=== PATIENT | male | born 1985 | race American Indian/Alaskan Native ===

== ENCOUNTER 2019-04-15 11:22 | Emergency (ER) | payer OTHER ==
[2019-04-15 12:03] VITALS: BP 138/92
--- NOTE | 2019-04-15 12:03 | Event Note ---
ED Screening Note Date of service: 04/15/19 Time: 12:00 ED Screening Note: 33 yo male presents with swelling and pain to finger tip affecting nail bed This initial assessment/diagnostic orders/clinical plan/treatment(s) is/are subject to change based on patients health status, clinical progression and re- assessment by fellow clinical providers in the ED. Further treatment and workup at subsequent clinical providers discretion. Patient/guardian urged not to elope from the ED as their condition may be serious if not clinically assessed and managed. Initial orders include: acc eval I&D
[2019-04-15] MEDS ORDERED: IBUPROFEN 600 MG TAB PO ONE (12:39)
--- NOTE | 2019-04-15 12:43 | Emergency Department Report ---
Abscess Boil HPI - HPI Chief Complaint: Extremity Injury, Upper Stated Complaint: FINGER Time Seen by Provider: 04/15/19 12:00 Duration: 5 Days Location: Upper Extremity Severity: Mild History: Yes Pain, No Fever, No Purulent Drainage, No Numbness, No Foreign Body, No Previous History, No Insect Bite HPI: 33 YO COMES TO ER WITH PARONYCHIA OF RIGHT FINGER. HE BITES HIS NAILS. HAD HAD FOR WEEKS. PAIN 8-10 Home Medications: Previous Rx's Medication Instructions Recorded Last Taken Type Amoxicillin [Trimox CAP] 500 mg PO BID #20 capsule 04/15/19 Unknown Rx Ibuprofen [Motrin] 800 mg PO Q8HR PRN #30 tablet 04/15/19 Unknown Rx Allergies/Adverse Reactions: Allergies Allergy/AdvReac Type Severity Reaction Status Date / Time No Known Allergies Allergy Unverified 04/15/19 11:25 ED Review of Systems ROS: Stated complaint: FINGER Other details as noted in HPI Comment: All other systems reviewed and negative ED Past Medical Hx - Past Medical History Previous Medical History?: Yes Hx Diabetes: Yes - Surgical History Past Surgical History?: No - Family History Family history: no significant - Social History Smoking Status: Current Every Day Smoker Substance Use Type: Marijuana - Medications Home Medications: Home Medications Medication Instructions Recorded Confirmed Last Taken Type Amoxicillin [Trimox CAP] 500 mg PO BID #20 capsule 04/15/19 Unknown Rx Ibuprofen [Motrin] 800 mg PO Q8HR PRN #30 tablet 04/15/19 Unknown Rx ED Abscess Boil Physical Exam - Exam General: Vital signs noted. No distress. Alert and acting appropriately. Size: 2 cm Exam: Yes Tenderness, Yes Fluctuance, Yes Heart Murmur, Yes Normal Neurologic Exam, Yes Normal Circulation, No Surrounding Cellulites/Erythema, No Lymphangitis, No Crepitation I & D Note - I & D Note I & D Note: I/D WITH NO 10 BLADE FOR MOD AMOUNT DRAINAGE. TOLERATED WELL ED Course Vital Signs 04/15/19 12:01 Temperature 98.1 F Pulse Rate 80 Respiratory 18 Rate Blood Pressure 138/92 O2 Sat by Pulse 95 Oximetry Critical care attestation.: If time is entered above; I have spent that time in minutes in the direct care of this critically ill patient, excluding procedure time. ED Medical Decision Making - Medical Decision Making I/D - TOLERATED WELL DC HOME WITH DC PLAN OF CARE AND PCP FOLLOW UP Vital Signs 04/15/19 12:01 Temperature 98.1 F Pulse Rate 80 Respiratory 18 Rate Blood Pressure 138/92 O2 Sat by Pulse 95 Oximetry - Differential Diagnosis SIMPLE ABSCESS ED Disposition Clinical Impression: Paronychia Disposition: TO HOME OR SELFCARE Is pt being admited?: No Does the pt Need Aspirin: No Condition: Stable Instructions: Paronychia (ED) Additional Instructions: WASH WOUND WITH SOAP AND WATER KEEP CLEAN AND DRY MED ORDERED DO NOT BITE YOUR NAILS Referrals: SONIDO CASTELLANO MD [Staff Physician] - 3-5 Days Time of Disposition: 13:19
== END 2019-04-15 13:30 | disposition home or self-care (01) ==
LOC: ED 11:22
DX: L03.011 Cellulitis of right finger (principal); F17.200 Nicotine dependence, unspecified, uncomplicated; E11.9 Type 2 diabetes mellitus without complications; F12.10 Cannabis abuse, uncomplicated

== ENCOUNTER 2021-03-26 13:55 | Emergency (ER) | payer SELFPAY ==
[2021-03-26 14:36] VITALS: BP 141/91
[2021-03-26] MEDS ORDERED: LIDOCAINE (1%) 10 MG/1 ML VIAL 20 ML MDV INFILTRATI ONE (15:03)
--- NOTE | 2021-03-26 15:06 | Emergency Department Report ---
- General Chief complaint: Skin/Abscess/Foreign Body Stated complaint: CYST/NECK Time Seen by Provider: 03/26/21 15:01 Source: patient Mode of arrival: Ambulatory Limitations: No Limitations - History of Present Illness Initial comments: Patient is a 35-year-old male who presents emergency room complaints of an abscess to the right side of the neck that began a week ago. Patient states he had an abscess in this region a few years ago and had to have an I&D at that time. He denies any drainage, fever, chills, nausea, vomiting. No other past medical history. No allergies to medications. - Related Data Previous Rx's Medication Instructions Recorded Last Taken Type Amoxicillin [Trimox CAP] 500 mg PO BID #20 capsule 04/15/19 Unknown Rx Ibuprofen [Motrin] 800 mg PO Q8HR PRN #30 tablet 04/15/19 Unknown Rx Sulfamethoxazole/Trimethoprim 1 each PO BID 7 Days #14 tablet 03/26/21 Unknown Rx [Bactrim DS TAB] Allergies Allergy/AdvReac Type Severity Reaction Status Date / Time No Known Allergies Allergy Unverified 04/15/19 11:25 Abscess Boil HPI - HPI Chief Complaint: Skin/Abscess/Foreign Body Stated Complaint: CYST/NECK Time Seen by Provider: 03/26/21 15:01 Home Medications: Previous Rx's Medication Instructions Recorded Last Taken Type Amoxicillin [Trimox CAP] 500 mg PO BID #20 capsule 04/15/19 Unknown Rx Ibuprofen [Motrin] 800 mg PO Q8HR PRN #30 tablet 04/15/19 Unknown Rx Sulfamethoxazole/Trimethoprim 1 each PO BID 7 Days #14 tablet 03/26/21 Unknown Rx [Bactrim DS TAB] Allergies/Adverse Reactions: Allergies Allergy/AdvReac Type Severity Reaction Status Date / Time No Known Allergies Allergy Unverified 04/15/19 11:25 ED Review of Systems ROS: Stated complaint: CYST/NECK Other details as noted in HPI Comment: All other systems reviewed and negative ED Past Medical Hx - Past Medical History Previous Medical History?: Yes Hx Diabetes: Yes - Surgical History Past Surgical History?: No - Social History Smoking Status: Current Every Day Smoker Substance Use Type: Alcohol, Marijuana - Medications Home Medications: Home Medications Medication Instructions Recorded Confirmed Last Taken Type Amoxicillin [Trimox CAP] 500 mg PO BID #20 capsule 04/15/19 Unknown Rx Ibuprofen [Motrin] 800 mg PO Q8HR PRN #30 tablet 04/15/19 Unknown Rx Sulfamethoxazole/Trimethoprim 1 each PO BID 7 Days #14 tablet 03/26/21 Unknown Rx [Bactrim DS TAB] ED Physical Exam - General Limitations: No Limitations General appearance: alert, in no apparent distress - Head Head exam: Present: atraumatic, normocephalic - Eye Eye exam: Present: normal appearance - ENT ENT exam: Present: mucous membranes moist - Neck Neck exam: Present: other (there is a 3 cm area of induration present to the right posterior neck, there is central fluctuance, there is a 1 cm pustule in the center of the induration, no active drainage, no crepitus, no necrosis) - Neurological Exam Neurological exam: Present: alert, oriented X3 - Psychiatric Psychiatric exam: Present: normal affect, normal mood - Skin Skin exam: Present: warm, dry ED Course Vital Signs 03/26/21 14:31 Temperature 98.3 F Pulse Rate 93 H Respiratory 18 Rate Blood Pressure 141/91 O2 Sat by Pulse 99 Oximetry - I & D Right Neck Type of Procedure: Complex Site: right posterior neck Blade Size: 11 I & D Procedure: betadine prep, sterile drapes applied, sterile dressing applied Progress: Verbal consent obtained by patient Betadine prep, sterile drapes applied, 3 cc of 1% lidocaine without epinephrine used anesthetic, 11 blade used to make a 1 cm incision, copious amounts of purulent drainage expressed, used blunt hemostats to break up loculations, irrigated with saline, packed with iodoform gauze, sterile dressing applied, patient tolerated well, no complications, bleeding controlled ED Medical Decision Making - Medical Decision Making Patient is a 35-year-old male who presents emergency room complaints of an abscess to the right side of the neck that began a week ago. Patient states he had an abscess in this region a few years ago and had to have an I&D at that time. He denies any drainage, fever, chills, nausea, vomiting. No other past medical history. No allergies to medications. Vitals are stable. On exam: there is a 3 cm area of induration present to the right posterior neck, there is central fluctuance, there is a 1 cm pustule in the center of the induration, no active drainage, no crepitus, no necrosis. I&D performed per procedure note without any complications. Patient given prescription for medications. Advised patient Please keep area clean, dry, covered. Wash around area with soap and water and pat dry. No hot tub, no pool. Please take medication as prescribed. Please return to emergency room for packing removal in the next 2 to 3 days. Follow-up with your primary care doctor and have area reexamined. Return to emergency room immediately for any new or worsening symptoms. Critical care attestation.: If time is entered above; I have spent that time in minutes in the direct care of this critically ill patient, excluding procedure time. ED Disposition Clinical Impression: Abscess of neck Disposition: HOME / SELF CARE / HOMELESS Is pt being admited?: No Does the pt Need Aspirin: No Condition: Stable Instructions: Skin Abscess, Incision and Drainage, Care After Additional Instructions: Please keep area clean, dry, covered. Wash around area with soap and water and pat dry. No hot tub, no pool. Please take medication as prescribed. Please return to emergency room for packing removal in the next 2 to 3 days. Follow-up with your primary care doctor and have area reexamined. Return to emergency room immediately for any new or worsening symptoms. Prescriptions: Sulfamethoxazole/Trimethoprim [Bactrim DS TAB] 1 each PO BID 7 Days #14 tablet Referrals: ASPEN SANDERS MD [Staff Physician] - 3-5 Days [facility] [Provider Group] - 3-5 Days Time of Disposition: 15:05 Print Language: AMHARIC
== END 2021-03-27 05:25 | disposition home or self-care (01) ==
LOC: ED 13:55
DX: L02.11 Cutaneous abscess of neck (principal); E11.9 Type 2 diabetes mellitus without complications; F17.200 Nicotine dependence, unspecified, uncomplicated; F12.90 Cannabis use, unspecified, uncomplicated; Z79.899 Other long term (current) drug therapy

== ENCOUNTER 2021-03-30 14:51 | Emergency (ER) | payer SELFPAY ==
[2021-03-30 15:28] VITALS: BP 127/85
--- NOTE | 2021-03-30 15:31 | Emergency Department Report ---
ED Recheck HPI - General Chief Complaint: Laceration/Recheck/Suture Stated Complaint: WOUND CHECK Time Seen by Provider: 03/30/21 15:29 Source: patient Mode of arrival: Ambulatory Limitations: No Limitations - History of Present Illness Initial Comments: 35 YO AA COMES TO ER FOR REMOVAL OF PACKING FROM NECK. HE DID NOT GET HIS RX FOR ANBX FILLED MD Complaint: wound re-check -: Gradual, days(s) Initial Visit For: abscess Returns Today for: other - Related Data Previous Rx's Medication Instructions Recorded Last Taken Type Amoxicillin [Trimox CAP] 500 mg PO BID #20 capsule 03/30/21 Unknown Rx Allergies Allergy/AdvReac Type Severity Reaction Status Date / Time No Known Allergies Allergy Unverified 04/15/19 11:25 ED Review of Systems ROS: Stated complaint: WOUND CHECK Other details as noted in HPI Comment: All other systems reviewed and negative ED Past Medical Hx - Past Medical History Previous Medical History?: Yes Hx Diabetes: Yes - Surgical History Past Surgical History?: No - Family History Family history: no significant - Social History Smoking Status: Current Every Day Smoker Substance Use Type: Alcohol, Marijuana - Medications Home Medications: Home Medications Medication Instructions Recorded Confirmed Last Taken Type Amoxicillin [Trimox CAP] 500 mg PO BID #20 capsule 03/30/21 Unknown Rx ED Physical Exam - General Limitations: No Limitations General appearance: alert, in no apparent distress - Head Head exam: Present: atraumatic, normocephalic - Eye Eye exam: Present: normal appearance - ENT ENT exam: Present: mucous membranes moist - Neck Neck exam: Present: normal inspection - Respiratory Respiratory exam: Present: normal lung sounds bilaterally. Absent: respiratory distress - Cardiovascular Cardiovascular Exam: Present: regular rate, normal rhythm. Absent: systolic murmur, diastolic murmur, rubs, gallop - GI/Abdominal GI/Abdominal exam: Present: soft, normal bowel sounds - Rectal Rectal exam: Present: deferred - Extremities Exam Extremities exam: Present: normal inspection - Back Exam Back exam: Present: normal inspection - Neurological Exam Neurological exam: Present: alert, oriented X3 - Psychiatric Psychiatric exam: Present: normal affect, normal mood - Skin Skin exam: Present: warm, dry, normal color, other. Absent: rash ED Course Vital Signs 03/30/21 15:27 Temperature 97.9 F Pulse Rate 76 Respiratory 18 Rate Blood Pressure 127/85 [Left] O2 Sat by Pulse 94 Oximetry ED Recheck MDM - Core Measures Measure Exclusions: not indicated - Differential Diagnosis Cutananeous Abscess reche - Medical Decision Making FOLLOW UP FOR PACKING REMOVAL REMOVED WITHOUT DIFFICULTY EDUCATED ON IMPORTANCE OF TAKING MEDS GIVEN RX FOR AMOX - IT WILL BE FREE AND HE WILL TAKE IT. WOUND CARE INSTRUCTIONS PROVIDED Vital Signs 03/30/21 15:27 Temperature 97.9 F Pulse Rate 76 Respiratory 18 Rate Blood Pressure 127/85 [Left] O2 Sat by Pulse 94 Oximetry DC HOME WITH DC PLAN OF CARE INCLUDING WOUND CARE, RX AND FOLLOW UP. HE VERBAL IZES UNDERSTANDING. Critical care attestation.: If time is entered above; I have spent that time in minutes in the direct care of this critically ill patient, excluding procedure time. ED Disposition Clinical Impression: Abscess of neck, Follow up Disposition: HOME / SELF CARE / HOMELESS Is pt being admited?: No Does the pt Need Aspirin: No Condition: Stable Instructions: Skin Abscess, [id number] Additional Instructions: KEEP WOUND CLEAN AND DRY ALLOW IT TO DRAIN SOAKING IN EPSOM SALTS WILL HELP MOTRIN OR TYLENOL FOR PAIN TAKE RX GIVEN TO YOU TODAY IT IS FREE AT THE STORE FOLLOW UP WITH PCP NEXT WEEK TO BE SURE THIS IS GETTING BETTER REFERRAL BELOW Prescriptions: Amoxicillin [Trimox CAP] 500 mg PO BID #20 capsule Referrals: ASPEN SANDERS MD [Staff Physician] - 3-5 Days Time of Disposition: 15:30
== END 2021-03-30 16:05 | disposition home or self-care (01) ==
LOC: ED 14:51
DX: L02.11 Cutaneous abscess of neck (principal); E11.9 Type 2 diabetes mellitus without complications; F17.200 Nicotine dependence, unspecified, uncomplicated; F12.90 Cannabis use, unspecified, uncomplicated; Z72.89 Other problems related to lifestyle
CPT/HCPCS: 99281